=== PATIENT | female | born 1970 | race Caucasian/White ===

== ENCOUNTER → 2023-06-23 14:56 | Outpatient (REF) | payer OTHER, SELFPAY | LOC: HWWDC 14:56 | PROVIDERS: ATTENDING PHYSICIAN Emergency Medicine | DX: Z12.31 Encounter for screening mammogram for malignant neoplasm of breast (principal) | CPT/HCPCS: 77063; 77067 ==

== ENCOUNTER → 2023-06-29 06:52 | Outpatient (REF) | payer OTHER, SELFPAY | LOC: RAD 06:52 | PROVIDERS: ATTENDING PHYSICIAN Physician Assistant Medical | DX: R10.11 Right upper quadrant pain (principal) | CPT/HCPCS: 76700 ==

== ENCOUNTER → 2023-07-18 11:06 | Outpatient (REF) | payer OTHER, SELFPAY | LOC: RAD 11:06 | PROVIDERS: ATTENDING PHYSICIAN Internal Medicine Gastroenterology; FAMILY PHYSICIAN Emergency Medicine | DX: R07.89 Other chest pain (principal); R10.13 Epigastric pain | CPT/HCPCS: 74221; 74246 ==

== ENCOUNTER → 2024-02-02 13:25 | Outpatient (REF) | payer OTHER, SELFPAY | LOC: HWRAD 13:25 | PROVIDERS: ATTENDING PHYSICIAN Obstetrics & Gynecology; FAMILY PHYSICIAN Emergency Medicine | DX: N92.6 Irregular menstruation, unspecified (principal); R53.83 Other fatigue | CPT/HCPCS: 76830; 76856 ==

== ENCOUNTER 2024-06-05 08:21 | Emergency (ER) | payer OTHER, SELFPAY ==
[2024-06-05 08:31] VITALS: BP 112/77
[2024-06-05 09:24] LABS: % Basophils 1.5 % (0-2); % Eosinophils 3.7 % (0-6); % Immature Granulocytes 0.2 % (0-0.5); % Monocytes 7.4 % (1.7-9.3); % Neutrophils 51.2 % (42.2-75.2); Absolute Basophils 0.1 10^3/uL (0-0.2); Absolute Eosinophils 0.2 10^3/uL (0-0.7); Absolute Lymphocytes 1.5 10^3/uL (1.2-3.4); Absolute Monocytes 0.3 10^3/uL (0.1-0.6); Absolute Neutrophils 2.1 10^3/uL (1.4-6.5); Hematocrit 41.8 % (37.0-47.0); Hemoglobin 14.1 g/dL (12.0-16.0); Mean Corp Hgb Conc. 33.7 g/dL (33.0-37.0); Mean Corpuscular Hgb 30.3 pg (27.0-31.0); Mean Corpuscular Volume 89.7 fL (81.0-99.0); Mean Platelet Volume 12.4 fL (7.4-10.4); Nucleated Red Blood Cells % 0 %; Platelet Count 157 10^3/uL (130-400); Red Blood Cell Count 4.66 10^6/uL (4.20-5.40); Red Cell Dist. Width 12.1 % (11.5-14.5); White Blood Cell Count 4.1 10^3/uL (4.8-10.8)
[2024-06-05 09:35] LABS: HCG, Serum Qualitative Screen Negative
[2024-06-05 09:42] LABS: ALT (SGPT) 20 U/L (0-35); AST (SGOT) 26 U/L (14-36); Albumin 3.9 g/dl (3.5-5.0); Alkaline Phosphatase 57 U/L (38-126); Blood Urea Nitrogen 19 mg/dl (7-17); Calcium 9.5 mg/dl (8.4-10.2); Carbon Dioxide 26 mmol/L (22-30); Chloride 104 mmol/L (98-107); Glucose 88 mg/dl (70-99); Lipase 52 U/L (23-300); Potassium 4.6 mmol/L (3.5-5.1); Sodium 136 mmol/L (135-145); Total Bilirubin 1.1 mg/dl (0.2-1.3); Total Protein 6.6 g/dl (6.3-8.2); eGFR > 60.00
--- NOTE | 2024-06-05 10:23 | ED.GENMED ---
History of Present Illness
General
Chief Complaint: Abdominal Pain
Time Seen by Provider: 06/05/24 09:58
History of Present Illness
History of Present Illness:
53-year-old female without significant past medical history presenting for upper abdominal pain. Patient reports symptoms started about 3 days ago. Reports that she has had these symptoms in the past, has seen GI in the past, had a workup last
July, without significant etiology to her symptoms. Denies known association with food, however does note that she was at her bridal shower at symptom onset and was eating some foods that she does not typically eat. Denies nausea or vomiting.
Reports some constipation. Reports history of umbilical hernia repair, otherwise no significant abdominal surgeries. Denies chest pain or difficulty breathing. Denies fever. Denies known history of indigestion. Denies additional acute medical
complaints
Past History
Past History
ED Past Medical History: None
ED Past Surgical History: None
Social History
Tobacco: Non-smoker
Phy Exam
Physical Exam
Physical Exam:
General: Well-appearing, no clinical signs of dehydration, nontoxic and in no acute distress
HEENT: protecting airway
Neck: appears supple
CV: Normal heart rate, regular rhythm
Resp: No accessory muscle use, no increased work of breathing, lungs clear to auscultation bilaterally
Abd: Soft and non-distended, mild tenderness to the epigastric and right upper quadrant abdomen without rebound or guarding
Extremities: No deformities, no swelling
Neuro: alert, no focal neurologic deficit
: deferred
Rectal: deferred
Psych: Normal affect
Skin: Intact
Course
Orders/Labs/Results
Orders:
Orders
06/05/24 08:36
Test Result ONCE
06/05/24 08:38
EKG [Electrocardiogram (*1)] Urgent
Reason for Study: Abdominal Pain
EKG- Treatment ONCE
06/05/24 08:51
Complete Blood Count/With Diff Urgent
Comprehensive Metabolic Panel Urgent
HCG, Serum Qualitative Screen Urgent
Lipase Urgent
06/05/24 10:20
Famotidine [Pepcid] 40 mg PO NOW STA
Mag Hydrox/Al Hydrox/Simeth [Maalox] 30 ml PO NOW STA
US Abdomen Complete/Upper Urgent
Comment:
Reason For Exam: epigastric and RUQ pain
06/05/24 12:37
Urinalysis Reflex To Culture Urgent
Date Specimen was Collected: 06/05/24
Time Specimen was Collected: 12:36
Abnormal Lab Results
06/05/24
08:51
WBC 4.1 L 10^3/uL
(4.8-10.8)
MPV 12.4 H fL
(7.4-10.4)
BUN 19 H mg/dl
(7-17)
06/05/24 08:51
06/05/24 08:51
Vital Signs
Initial and Last Documented VS:
Initial Vital Signs
Temp Pulse Resp BP Pulse Ox
98.3 F 64 18 112/77 100
06/05/24 08:31 06/05/24 08:31 06/05/24 08:31 06/05/24 08:31 06/05/24 08:31
Last Documented Vital Signs
Temp Pulse Resp BP Pulse Ox
98.3 F 84 20 124/68 99
06/05/24 08:31 06/05/24 12:00 06/05/24 12:00 06/05/24 12:00 06/05/24 12:00
MDM/Problems Addressed
MDM/Problems Addressed:
53-year-old female presenting for upper abdominal pain for the past 3 days. Vital signs on arrival are normal.
On exam patient is resting comfortably, no acute distress or discomfort. She is afebrile, nontoxic. Patient with reproducible tenderness most notable to the epigastric region with suspicion for gastritis and gastric reflux. There is some mild
tenderness to the right upper quadrant so cholelithiasis versus biliary colic is a consideration. On review of EMR, patient had an upper GI series on 07/18/23 which did show signs of gastric reflux. She did have an abdominal ultrasound on 06/29/23,
no acute pathology. Patient had screening laboratory analysis prior to my assessment, normal lipase, no leukocytosis. Will obtain ultrasound imaging and administer Maalox and Pepcid and reassess for improvement
12:30 -patient's labs again are normal, no leukocytosis, no elevation of T. bili or liver enzymes. Ultrasound without acute abnormality. Does mention to have normal value for dilation of common bile duct. On reassessment, does note that her
symptoms have improved slightly after GI cocktail. No Blankenship's sign. Overall low suspicion for choledocholithiasis without any inflammatory changes to the liver by laboratory analysis. Patient now reporting some suprapubic discomfort on exam.
Will send urinalysis
14:00 -urine without sign of infection. Patient continues to express some symptom improvement in her upper GI pain. Feel stable for discharge, hemodynamically stable. Will start patient on an antacid. Otherwise advised outpatient follow-up and
educated on triggers. Return precautions discussed and patient verbalized understanding
*Critical Care Note
Total Time (30-74mins, 75-104mins- exclusive of procedures): Not Applicable
ED Attending Note
-
Portions of this chart may have been created with voice recognition software.� Occasional wrong word or��sound alike� substitutions may have occurred due to the inherent limitations of voice recognition software.
Discharge Plan
Departure
Prescriptions:
No Action
ondansetron 4 MG tablet,disintegrating
4 mg PO TIDPRN PRN (Reason: nausea/vomiting) Qty: 12 0RF
Referrals:
Asia Woods MD [Family Provider] -
Interventions
Interventions:
*Risk Screen - Suicide Last Done: 06/05/24 08:31
*General Assessment Last Done: 06/05/24 08:31
*Neglect/Abuse Screening Last Done: 06/05/24 08:31
*ED COVID-19 Vaccine History Last Done: 06/05/24 08:31
SA-Bodcct-Hvauwttrtp Assessment Last Done: 06/05/24 11:00
Discharge Date and Time
Print Language: MALAYSIAN
[2024-06-05] MEDS: PEPCID 40 MG PO (11:01)
[2024-06-05] MEDS: MAALOX 30 ML PO (11:02)
[2024-06-05 12:00] VITALS: BP 124/68
[2024-06-05 13:39] LABS: Urine Albumin Negative (Neg - Trace); Urine Bilirubin Negative (Negative); Urine Character Clear (Clear); Urine Color Yellow; Urine Glucose Negative (Negative); Urine Ketone Negative (Negative); Urine Leukocyte Negative (Negative); Urine Nitrite Negative (Negative); Urine Occult Blood Negative (Negative); Urine Specific Gravity 1.005 (<1.030); Urine Urobilinogen Negative (Neg - 1+)
[2024-06-05 14:40] VITALS: BP 118/62
== END 2024-06-05 14:40 | disposition home or self-care (01) ==
LOC: EMR 08:21
PROVIDERS: Student in an Organized Health Care Education/Training Program; EMERGENCY PHYSICIAN Student in an Organized Health Care Education/Training Program; FAMILY PHYSICIAN Emergency Medicine
DX: R10.10 Upper abdominal pain, unspecified (principal)
CPT/HCPCS: 99284; 76700; 80053; 81003; 83690; 84703; 85025

== ENCOUNTER 2024-06-08 13:26 | Emergency (ER) | payer OTHER, SELFPAY ==
[2024-06-08 13:30] VITALS: BP 140/65
[2024-06-08 13:51] LABS: % Basophils 1.1 % (0-2); % Eosinophils 1.9 % (0-6); % Immature Granulocytes 0.3 % (0-0.5); % Lymphocytes 34.1 % (20.5-51.1); % Monocytes 6.1 % (1.7-9.3); % Neutrophils 56.5 % (42.2-75.2); Absolute Basophils 0.1 10^3/uL (0-0.2); Absolute Eosinophils 0.1 10^3/uL (0-0.7); Absolute Lymphocytes 2.1 10^3/uL (1.2-3.4); Absolute Monocytes 0.4 10^3/uL (0.1-0.6); Absolute Neutrophils 3.5 10^3/uL (1.4-6.5); Hematocrit 42.1 % (37.0-47.0); Hemoglobin 14.7 g/dL (12.0-16.0); Mean Corp Hgb Conc. 34.9 g/dL (33.0-37.0); Mean Corpuscular Hgb 30.9 pg (27.0-31.0); Mean Corpuscular Volume 88.4 fL (81.0-99.0); Nucleated Red Blood Cells % 0 %; Platelet Count 175 10^3/uL (130-400); Red Blood Cell Count 4.76 10^6/uL (4.20-5.40); Red Cell Dist. Width 11.9 % (11.5-14.5); White Blood Cell Count 6.2 10^3/uL (4.8-10.8)
[2024-06-08 14:04] LABS: ALT (SGPT) 19 U/L (0-35); AST (SGOT) 26 U/L (14-36); Albumin 4.4 g/dl (3.5-5.0); Alkaline Phosphatase 64 U/L (38-126); Blood Urea Nitrogen 17 mg/dl (7-17); Calcium 9.7 mg/dl (8.4-10.2); Carbon Dioxide 30 mmol/L (22-30); Chloride 100 mmol/L (98-107); Glucose 89 mg/dl (70-99); Lipase 52 U/L (23-300); Potassium 4.4 mmol/L (3.5-5.1); Sodium 137 mmol/L (135-145); Total Bilirubin 1.1 mg/dl (0.2-1.3); Total Protein 7.2 g/dl (6.3-8.2); eGFR > 60.00
[2024-06-08 14:09] LABS: HCG, Serum Qualitative Screen Negative
--- NOTE | 2024-06-08 14:58 | ED.GENMED ---
History of Present Illness
<Jennifer Muñoz, FLATCAR WHACKER - Last Filed: 06/09/24 15:47>
General
Chief Complaint: Abdominal Pain
Source: patient
Exam Limitations: none
Time Seen by Provider: 06/08/24 14:41
Nursing documentation reviewed up to this point in time: agreed with
History of Present Illness
History of Present Illness:
53 yo female w h/o umbilical hernia that was repaired with mesh 20 yrs ago, that causes her pain 'maybe 5 times a year' states she constantly 'pushed it back in.' She states she is here at the request of her PCP to get a CAT scan to rule out
incarcerated hernia. Pain is minimal at rest, painful to push on area.
Past History
<Jennifer Muñoz, FLATCAR WHACKER - Last Filed: 06/09/24 15:47>
Past History
ED Past Medical History: None
ED Past Surgical History: None
Social History
Tobacco: Non-smoker
Review of Systems
<Jennifer Muñoz, FLATCAR WHACKER - Last Filed: 06/09/24 15:47>
Review of Systems
Allergies reviewed?: Yes
All Other Systems: ROS reviewed and negative except as documented in HPI and ROS
Constitutional: Denies fever
ABD/GI: Reports abdominal pain; Denies nausea, vomiting, diarrhea or constipated
: Denies dysuria, frequency or difficulty voiding
Musculoskeletal: Reports no symptoms
Skin: Reports no symptoms
Neurological: Reports no symptoms
Phy Exam
<Jennifer Muñoz, FLATCAR WHACKER - Last Filed: 06/09/24 15:47>
Physical Exam
Physical Exam:
GENERAL: No acute distress. A&Ox3.
CONSTITUTIONAL: Afebrile.
EYES: clear, conjunctivae normal
ENMT: moist mucus membranes
RESPIRATORY: Regular respirations, nonlabored, lungs clear.
CARDIOVASCULAR: Regular rate and rhythm, no murmurs, no rubs.
GI: Soft, periumbilical tenderness, no palpable masses, no significant swelling, hypoactive BS
MUSCULOSKELETAL: Moves with ease. Well perfused.
SKIN: Warm, dry, pink
PSYCH: Normal mood and affect. Well kept, interactive and appropriate
NEUROLOGIC: Awake, alert and oriented. No focal neurological deficits
Course
<Jennifer Muñoz FLATCAR WHACKER - Last Filed: 06/09/24 15:47>
Orders/Labs/Results
Orders:
Orders
06/08/24 13:34
Test Result ONCE
06/08/24 13:40
Complete Blood Count/With Diff Urgent
Comprehensive Metabolic Panel Urgent
HCG, Serum Qualitative Screen Urgent
Lipase Urgent
06/08/24 14:56
CT Abd/Pel (IV only)-DH only Urgent
Comment:
Reason For Exam: concern re umbilical hernia 'strangulation'per PCP
06/08/24 17:24
Magnesium Citrate [Citroma] 300 ml PO ONCE ONE
06/08/24 18:32
HYDROmorphone [Dilaudid] 0.5 mg IV NOW STA
Abnormal Lab Results
06/08/24
13:40
MPV 12.0 H fL
(7.4-10.4)
06/08/24 13:40
06/08/24 13:40
Vital Signs
Initial and Last Documented VS:
Initial Vital Signs
Temp Pulse Resp BP Pulse Ox
98.4 F 81 18 140/65 100
06/08/24 13:30 06/08/24 13:30 06/08/24 13:30 06/08/24 13:30 06/08/24 13:30
Last Documented Vital Signs
Temp Pulse Resp BP Pulse Ox
98.4 F 98 17 111/73 98
06/08/24 13:30 06/08/24 17:58 06/08/24 17:58 06/08/24 17:58 06/08/24 17:58
<Benitez Smith MD - Last Filed: 06/08/24 19:01>
Orders/Labs/Results
Orders:
Orders
06/08/24 13:34
Test Result ONCE
06/08/24 13:40
Complete Blood Count/With Diff Urgent
Comprehensive Metabolic Panel Urgent
HCG, Serum Qualitative Screen Urgent
Lipase Urgent
06/08/24 14:56
CT Abd/Pel (IV only)-DH only Urgent
Comment:
Reason For Exam: concern re umbilical hernia 'strangulation'per PCP
06/08/24 17:24
Magnesium Citrate [Citroma] 300 ml PO ONCE ONE
06/08/24 18:32
HYDROmorphone [Dilaudid] 0.5 mg IV NOW STA
Abnormal Lab Results
06/08/24
13:40
MPV 12.0 H fL
(7.4-10.4)
06/08/24 13:40
06/08/24 13:40
Vital Signs
Initial and Last Documented VS:
Initial Vital Signs
Temp Pulse Resp BP Pulse Ox
98.4 F 81 18 140/65 100
06/08/24 13:30 06/08/24 13:30 06/08/24 13:30 06/08/24 13:30 06/08/24 13:30
Last Documented Vital Signs
Temp Pulse Resp BP Pulse Ox
98.4 F 98 17 111/73 98
06/08/24 13:30 06/08/24 17:58 06/08/24 17:58 06/08/24 17:58 06/08/24 17:58
<Jennifer Muñoz NP - Last Filed: 06/09/24 15:47>
MDM/Problems Addressed
Differential Diagnosis Includes:
umbilical hernia, strangulated hernia, bowl obstruction, constipation
MDM/Problems Addressed:
53 yo female w h/o umbilical hernia that was repaired with mesh 20 yrs ago, that causes her pain 'maybe 5 times a year' states she constantly 'pushed it back in.' She has had umbilical pain past 3 days, She states she is here at the request of her
PCP to get a CAT scan to rule out incarcerated hernia. Pain is minimal at rest, painful to push on area.
She has been constipated past week with small hard stools. Has been taking Miralax
Seen here on 07/03 for abdominal pain. At that time had epigastric and RUQ pain. W/U for upper abdominal pain including US neg and neg U/A.
States past 3 days pain is different and consistent but worse that her typical umbilical hernia pain.
States she is unable to reduce it.
States pain is 'nonexistent' at rest, aggravated during night when she moves in bed.
1 cm firm tender mass umbilical area, this examiner unable to reduce it.
3:00 p.m.
CBC, CMP normal
HCG negative
4:[address] abdomen w IV contrast: Radiology report read: IMPRESSION:
Markedly limited evaluation of intestinal tract without oral contrast and as a result of marked paucity of intra-abdominal/pelvic fat, without intestinal obstruction or free air.
Soft tissue density, stranding and fatty density involving the superficial periumbilical soft tissues measuring approximately 3.2 x 1.5 x 1.3 cm which could represent an umbilical hernia although discrete hernia defect is difficult to confirm and
without definitive findings to confirm contains a loop of bowel although limited, as noted above. Incarceration cannot be excluded..
Pt informed of results, remains pain free at rest.
5:45 p.m.
Unable to reduce hernia
Report reviewed with Dr. Smith who request ice pack and he will attempt to reduce it. Pt informed and OK with plan.
Luis Chanel to assume care from this point
<Jennifer Muñoz NP - Last Filed: 06/09/24 15:47>
*Critical Care Note
Total Time (30-74mins, 75-104mins- exclusive of procedures): Not Applicable
ED Attending Note
<Jennifer Muñoz NP - Last Filed: 06/09/24 15:47>
-
Portions of this chart may have been created with voice recognition software.� Occasional wrong word or��sound alike� substitutions may have occurred due to the inherent limitations of voice recognition software.
<Benitez Smith MD - Last Filed: 06/08/24 19:01>
ED Attending Note
Patient seen and examined by attending physician: Yes
ED Attending Note:
I have seen and evaluated the patient with a [id number]-[id number] encounter. I have spoken to the advance practicer provider and involved in the medical history, the physical exam, medical decision making.
Evaluation and management service: agree unless noted differently below.
Results interpretation: agree unless noted differently below.
Focused HPI: 53-year-old female presents with incarcerated umbilical hernia. Patient has been constipated said she was bearing down and felt small bump and pain in the periumbilical region. No nausea vomiting or any other symptoms. Symptoms
started on Tuesday. She was referred over by her primary for assessment.
Physical exam: Awake alert not in distress. Vital signs and will. Abdomen soft, palpable small umbilical hernia tender to the touch but no overlying erythema or warmth; not easily reducible on initial exam
Medical Decision Makin-year-old female sent over with concern for an incarcerated umbilical hernia. Labs sent off were unremarkable, CT appears to show fat-containing hernia no bowel contained within the hernia. Provided dose of Dilaudid and
ice pack and subsequently attempted bedside reduction�I was able to reduce some of hernia but there is a palpable bit of fat which I could not completely reduce. Her pain did improve after partial reduction. I think she is stable for discharge
given that this is a fat-containing hernia only and she can follow-up with general surgery as an outpatient. I did discuss with general surgery they are agreeable and will follow-up with her.
Discharge Plan
Departure
Patient Disposition: Home (Routine Discharge)
Date of Disposition: 06/08/24
Time of Disposition: 19:00
Patient with high blood pressure during this ER visit?: Yes
Condition: Fair
Discharge Problem:
Umbilical hernia, Constipation
Instructions: Constipation, Adult (DC), Abdominal wall hernias
Prescriptions:
No Action
ondansetron 4 MG tablet,disintegrating
4 mg PO TIDPRN PRN (Reason: nausea/vomiting) Qty: 12 0RF
pantoprazole 20 mg tablet,delayed release (DR/EC)
20 mg PO DAILY 60 Days Qty: 60 0RF
Referrals:
Asia Woods MD [Family Provider] -
Adam Umanzor MD [Active] - Call in 1-3 days for appt
Activity Restrictions/Additional Instructions:
As we discussed, there is no sign of strangulated hernia or bowel obstruction.
Your lab work is normal
Contact Dr. Umanzor to discuss possible repair/revision of the hernia area since it is starting to bother you more.
You have a moderate amount of stool on your CT scan. Take the entire bottle of Magnesium Citrate when you get home.
Interventions
Interventions:
*Risk Screen - Suicide Last Done: 06/08/24 13:30
*General Assessment Last Done: 06/08/24 13:30
*Neglect/Abuse Screening Last Done: 06/08/24 13:30
ED- Fall Risk Assessment Last Done: 06/08/24 15:05
*Nursing Disposition Last Done: 06/08/24 19:14
ZM-Nnnykx-Ljlcnllygk Assessment Last Done: 06/08/24 15:03
Discharge Date and Time
Discharge Date/Time: 06/08/24 19:15
Print Language: BRITISH
[2024-06-08 17:58] VITALS: BP 111/73
[2024-06-08] MEDS: DILAUDID 0.5 MG IV (18:32)
[2024-06-08] MEDS: CITROMA 300 ML PO (18:57)
== END 2024-06-08 19:15 | disposition home or self-care (01) ==
LOC: EMR 13:26
PROVIDERS: Emergency Medicine; EMERGENCY PHYSICIAN Emergency Medicine; FAMILY PHYSICIAN Emergency Medicine
DX: K42.0 Umbilical hernia with obstruction, without gangrene (principal); K59.00 Constipation, unspecified
CPT/HCPCS: 99284; 96374; 74177; 80053; 83690; 84703; 85025; Q9967

== ENCOUNTER → 2024-07-11 12:28 | Outpatient (REF) | payer OTHER, SELFPAY | LOC: HWWDC 12:28 | PROVIDERS: ATTENDING PHYSICIAN Emergency Medicine | DX: Z12.31 Encounter for screening mammogram for malignant neoplasm of breast (principal) | CPT/HCPCS: 77063; 77067 ==

== ENCOUNTER 2024-08-13 06:17 | Day surgery (SDC) | payer OTHER, SELFPAY ==
[2024-08-01 14:07] VITALS: BMI 20.4
[2024-08-13] VITALS (8 sets, daily range): BP systolic 95–118; BP diastolic 60–91; BMI 20.4
[2024-08-13] MEDS: NORMOSOL-R/PLASMALYTE-A 1000 IV (11:53)
[2024-08-13] MEDS: TYLENOL 1000 MG PO (11:53)
[2024-08-13] MEDS: HEPARIN SC (11:54)
[2024-08-13] MEDS: HEPARIN 5000 UNITS SC (12:07)
--- NOTE | 2024-08-13 13:49 | W.IMMPOSTOP ---
Surgical Immed Post Op Note
-
Primary Surgeon: Dionicio
Assisting: Madelyn NEVES
Pre-op Diagnosis: Recurrent incarcerated umbilical hernia
Post-op Diagnosis: Same
Procedure Performed: Robot assisted laparoscopic repair of recurrent incarcerated umbilical hernia (rTAPP) Hernia size: 3.5cm)
Anesthesia Type: GETA + TAP block
Specimen / Cultures: None
Estimated Blood Loss: 5cc
Complications: None immediate
Operative Findings: Recurrent umbilical defect, 5mm x 1cm, 2.5cm fascial bridge and additional supraumbilical defect 1cm x 5mm; incarcerated fat, 11cm bard soft mesh
--- NOTE | 2024-08-13 13:51 | OR.RPT ---
Operative Report
Operative Report
Primary Surgeon: Dionicio
Assisting: Madelyn NEVES
Pre-op Diagnosis: Recurrent incarcerated umbilical hernia
Post-op Diagnosis: Same
Procedure Performed: Robot assisted laparoscopic repair of recurrent incarcerated umbilical hernia (rTAPP) Hernia size: 3.5cm)
Anesthesia Type: GETA + TAP block
Specimen / Cultures: None
Estimated Blood Loss: 5cc
Complications: None immediate
Operative Findings: Recurrent umbilical defect, 5mm x 1cm, 2.5cm fascial bridge and additional supraumbilical defect 1cm x 5mm; incarcerated fat, 11cm bard soft mesh
Indications:� This 53F developed a symptomatic recurrent incarcerated umbilical hernia. Robot assisted laparoscopic repair was planned.
Description of procedure:� The patient was taken to the operating room and positioned into supine position. The patient�s abdomen was prepped and draped in standard sterile fashion. A time-out was completed verifying correct patient, procedure,
site, positioning, and implants and special equipment prior to beginning this procedure.� The hernia was unable to be manually reduced after induction. A stab incision was made in the left upper quadrant, a Veress needle was inserted and proper
position was confirmed by aspiration and saline drop test. Following this, pneumoperitoneum was created with insufflation of carbon dioxide to 12 mmHg. Then a 8mm robotic trocar was inserted at the left anterior axillary line at the level of the
umbilicus. The laparoscope was inserted and no injuries were identified in the area. Under direct visualization, the initial trocar was exposed and two 8mm trocars were placed a hand's breadth above and below the initial trocar under direct
visualization.
Attention was turned to the umbilical defect. The peritoneum was incised several cm superior to the defect and a peritoneal flap was developed in transverse and caudad directions using blunt and sharp dissection and judicious electrocautery. The
defects were identified and measured as above. Incarcerated fatty contents were reduced from all defects. The defects were closed with 0 PDS stratafix suture. An 11cm x 11cm bard soft mesh was passed into the abdomen. It was placed against the
underside of the abdominal wall and secured in place with 2-0 vicryl sutures at all four corners. The flap was closed over the mesh and secured with 2-0 monocryl stratafix suture. A 14g angiocath was used to decompress the preperitoneal space. The
flap sealed and suctioned nicely up to the abdominal wall. The mesh did not fold nor curl. A transversus abdominis plane block was then performed under laparoscopic vision with marcaine/decadron.
After ensuring adequate hemostasis, the trocars were removed and the pneumoperitoneum allowed to escape. The trocar incisions were closed at the skin level using 4-0 monocryl and topical skin adhesive. All counts were correct. The patient tolerated
the procedure well and was taken to the postanesthesia care unit in stable condition.
The assistance of Madelyn NEVES was required due to the complexity of the procedure. During the procedure she assisted with retraction, resection, block and closure of the wound.
[2024-08-13] MEDS: DEMEROL 12.5 MG IV (14:10)
[2024-08-13] MEDS: ZOFRAN 4 MG IV (14:14)
[2024-08-13] MEDS: COMPAZINE 5 MG IV (14:33)
== END 2024-08-13 16:55 | disposition home or self-care (01) ==
LOC: SDS 06:17
PROVIDERS: ATTENDING PHYSICIAN Surgery; FAMILY PHYSICIAN Emergency Medicine
DX: K42.0 Umbilical hernia with obstruction, without gangrene (principal)
CPT/HCPCS: 49616; 36415; 93005; C1781

== ENCOUNTER → 2024-11-14 14:52 | Outpatient (REF) | payer OTHER, SELFPAY | LOC: RAD 14:52 | PROVIDERS: ATTENDING PHYSICIAN Student in an Organized Health Care Education/Training Program | DX: R10.9 Unspecified abdominal pain (principal); K42.0 Umbilical hernia with obstruction, without gangrene | CPT/HCPCS: 36415; 74177; 80053; 83690; 85025; Q9967 ==

== ENCOUNTER 2024-11-28 06:28 | Day surgery (SDC) | payer OTHER, SELFPAY | END 2024-11-28 13:05 | disposition home or self-care (01) | LOC: GI 06:28 | PROVIDERS: ATTENDING PHYSICIAN Internal Medicine Gastroenterology | DX: R19.4 Change in bowel habit (principal); R10.31 Right lower quadrant pain; K64.8 Other hemorrhoids; K64.4 Residual hemorrhoidal skin tags; K57.30 Diverticulosis of large intestine without perforation or abscess without bleeding | CPT/HCPCS: 45378 ==

== ENCOUNTER → 2024-12-03 10:51 | Outpatient (REF) | payer OTHER, SELFPAY ==
[2024-12-03 23:50] LABS: Urine Character Slightly Cloudy (Clear)
[2024-12-04 00:47] LABS: Urine Red Blood Cell >100 /HPF (0-2)
== END ==
LOC: CLAB 10:51
PROVIDERS: ATTENDING PHYSICIAN Student in an Organized Health Care Education/Training Program
DX: R30.0 Dysuria (principal)
CPT/HCPCS: 81003; 81015; 87086